=== PATIENT | female | born 1970 | race Caucasian/White ===

== ENCOUNTER 2024-09-10 11:43 | Emergency (ER) | payer OTHER ==
[~2024-09-10] VITALS: Ht 167.6 cm; Wt 90.7 kg
[~2024-09-10 11:43] MED LIST: ALPR0.25; ATEN-60; PAXIL
[2024-09-10] MEDS: HYDROmorphone HCL 2 MG/ML VL/or syr IV ONE ×2 (12:29→14:12)
[2024-09-10] MEDS: ONDANSETRON HCL 4 MG/2 ML VIAL IV ONE (12:30)
--- NOTE | 2024-09-10 12:54 | DVH ---
EXAM: XR Right Shoulder Complete, 2 or More Views CLINICAL INDICATION: ro fracture/dislocation TECHNIQUE: Two or more views of the right shoulder. COMPARISON: None FINDINGS: BONES/JOINTS: Anterior-inferior dislocation of the humeral head from the glenohumeral joint. Commi nuted fracture of the greater tuberosity. SOFT TISSUES: Unremarkable. OTHER FINDINGS: . . . .. IMPRESSION: 1. Anterior-inferior dislocation of the humeral head from the glenohumeral joint. 2. Comminuted fracture of the greater tuberosity.
[2024-09-10 13:24] VITALS: TEMP 97.7
[2024-09-10 13:25] VITALS: PULSE 62; RESP 20; O2SAT 97
--- NOTE | 2024-09-10 13:51 | ED.PDOC ---
Musculoskeletal Chief Complaint: Upper Extremity Time Seen by MD: 12:04 Reviewed Notes: Medications, Allergies Allergies: Coded Allergies: NO KNOWN ALLERGIES (Unverified , 03/12/10) Home Meds Reported Medications Alprazolam (Xanax) 0.25 Mg Tb, DAILY 03/12/10 [Paxil] No Conflict Check 03/12/10 Atenolol (Atenolol) 25 Mg Tab, DAILY 03/12/10 Information Source: Patient, Emergency Med Personnel Mode of Arrival: EMS Location: Right Extremity Location: Shoulder Timing: Hours Prehospital treatment: None Severity: Moderate Able to Move Extremity: No Bear Weight: No Pain: Moderate Hand Dominance: Right Mechanism: Blunt Trauma Circumstances: Fall Onset of Symptoms: After Trauma Symptoms: Pain DVT Risk Factors: NONE Last Tetanus: Unknown Associated signs and symptoms: Shoulder pain Past Medical History PAST MEDICAL HISTORY: Denies Surgical History: Denies all surgeries SAWSMITH History: Denies all SAWSMITH Hx Family History Family History: Reviewed,noncontributory to illness Social History Smoker: Non-Smoker Alcohol: Denies ETOH Use Drugs: Denies Drug Use Lives In: Home Constitutional: denies: chills, diaphoresis, fatigue, fever, malaise, sweats, weakness, others EENTM: denies: blurred vision, double vision, ear bleeding, ear discharge, ear drainage, ear pain, ear ringing, eye pain, eye redness, hearing loss, mouth pain, mouth swelling, nasal discharge, nose bleeding, nose congestion, nose pain, photophobia, tearing, throat pain, throat swelling, voice changes, others Respiratory: denies: cough, hemoptysis, orthopnea, SOB at rest, shortness of breath, SOB with excertion, stridor, wheezing, others Cardiovascular: denies: chest pain, dizzy spells, diaphoresis, Dyspnea on exertion, edema, irregular heart beat, left arm pain, lightheadedness, palpitations, PND, syncope, others Gastrointestinal: denies: abdomen distended, abdominal pain, blood streaked bowels, constipated, diarrhea, dysphagia, difficulty swallowing, hematemesis, melena, nausea, poor appetite, poor fluid intake, rectal bleeding, rectal pain, vomiting, others Genitourinary: denies: abnormal vagina bleeding, burning, dyspareunia, dysuria, flank pain, frequency, hematuria, incontinence, pain, , vagina discharge, urgency, others Neurological: denies: dizziness, fainting, headache, left sided numbness, left sided weakness, numbness, paresthesia, pre-existing deficit, right sided numbness, right sided weakness, seizure, speech problems, tingling, tremors, weakness, others Musculoskeletal: reports: joint pain, muscle pain; denies: back pain, gout, joint swelling, muscle stiffness, neck pain, others Integumetry: denies: bruises, change in color, change in hair/nails, dryness, laceration, lesions, lumps, rash, wounds, others Allergic/Immunocompromised: denies: Difficulty Healing, Frequent Infections, Hives, Itching, others Hematologic/Lymphatic: denies: anemia, blood clots, easy bleeding, easy bruising, swollen glands, others Endocrine: denies: excessive hunger, excessive sweating, excessive thirst, excessive urination, flushing, intolerance to cold, intolerance to heat, unexplained weight gain, unexplained weight loss, others Psychiatric: denies: anxiety, bipolar disorder, depression, hopeless, panic disorder, schizophrenia, sleepless, suicidal, others All Other Systems: Reviewed and Negative Physical Exam General Appearance: Normal, Severe Distress, Other (CRYING IN PAIN) HEENT: NOT DONE Neck: NOT DONE Respiratory: Chest Non-Tender, Lungs Clear, No Accessory Muscle Use, No Respiratory Distress, Normal Breath Sounds Cardiovascular: No Edema, No JVD, No Murmur, No Gallop, Normal Peripheral Pulses, Tachycardia Breast Exam: Deferred Gastrointestinal: No Organomegaly, Non Tender, No Pulsatile Mass, Normal Bowel Sounds, Soft Genitalia: Deferred Pelvic: Deferred Rectal: Deferred Extremities: Decreased range of motion, Other (RIGHT SHOULDER DEFORMITY, DECREASED SENSATION TO LATERAL HUMERUS overlying axillary nerve region.) Neurologic: Alert, retail brand ambassador II-XII nml as Tested, No Motor Deficits, Normal Affect, Normal Mood, No Sensory Deficits Cerebellar Function: Normal Reflexes: Normal Skin: Dry, Normal Color, Warm Lymphatic: No Adenopathy Was a procedure done? Was a procedure done?: Yes Sedation Sedation?: Yes Informed consent obtained: Yes Sedation start time: 14:00 Sedation end time: 14:02 Sedation total time: 2 minutes Sedation provider statement: 72mg PROPOFOL IV Reduction Indication: Dislocation Sedation: Consents obtained, Sedation as ordered Intra-articular anesthetic mirian: No Post-reduction x-ray show: Reduction, Good Alignment Informed consent obtained: Yes Risks/benefits/alt described: Yes Differential Diagnosis EXT Differential Diagnosis: Fracture, Sprain, Dislocation, Contusion, Strain X-Ray, Labs, Meds, VS Vital Signs Date Time Temp Pulse Resp B/P (MAP) Pulse Ox O2 Delivery O2 Flow Rate FiO2 09/10/24 14:19 97 Nasal Cannula* 4 36 09/10/24 14:12 63 20 177/77 09/10/24 13:25 62 20 97 Room Air* 0 21 09/10/24 13:24 97.7 64 20 174/77 (109) 98 97.7 09/10/24 12:59 59 20 177/77 09/10/24 12:29 72 18 166/74 09/10/24 11:52 98.0 61 24 145/90 (108) 96 Current Medications Medications (Trade) Dose Ordered Sig/Emely Route Start Time Stop Time Status Last Admin Ondansetron HCl (Zofran) 4 mg ONCE ONCE IV 09/10/24 12:15 09/10/24 12:16 DC 09/10/24 12:30 Hydromorphone HCl (Dilaudid Injection) 1 mg ONCE ONCE IV 09/10/24 12:15 09/10/24 12:16 DC 09/10/24 12:29 Hydromorphone HCl (Dilaudid Injection) 1 mg ONCE ONCE IV 09/10/24 13:45 09/10/24 13:46 DC 09/10/24 14:12 Propofol (Diprivan) 72 mg ONCE ONCE IV 09/10/24 13:45 09/10/24 13:46 DC 09/10/24 14:13 Sodium Chloride 1,000 ml @ 1,000 mls/hr Q1H ONCE IV 09/10/24 13:45 09/10/24 14:44 09/10/24 14:12 53-year-old female presents here status post trip and fall. She now reports significant right shoulder pain. Patient was screaming and crying upon her arrival to the ER. Patient was seen immediately by myself. On my evaluation she is in a sling in his obvious deformity to her right shoulder. She reports numbness to her fingers and also to her lateral humerus. Patient was treated with Dilaudid and Zofran IV. X-rays of the right shoulder has been done which does demonstrate an anterior inferior shoulder dislocation with a greater tuberosity fracture of the humeral head. At this time procedural sedation has been done. Dr. Colvin at bedside during procedure with the help with assistance, as well as respiratory therapist, and nurse. Patient was given total of propofol 72 mg IV. Patient tolerated procedure well. Patient shoulder immediately was reduced successfully. Patient was placed in shoulder immo bilizer. Patient is neurovascularly intact status post procedure he is here she continues to have numbness to the lateral humeral arm near the axillary nerve region. Post reduction x-rays demonstrate good reduction. I have sent her a prescription for [place] and Zofran to her [place] pharmacy. I had a long discussion with the patient that she will require orthopedic follow up. I have contacted [facility] for follow up appointment with orthopedic surgeon. Strongly advised patient that she needs to keep the shoulder immobilizer on at all times. She can take it off during shower but it is important she keeps her arm adducted to her side at all times. Time of 1ST Reevaluation: 12:34 Reevaluation 1ST: Unchanged Patient Education/Counseling: Diagnosis, Treatment, Prognosis Family Education/Counseling: Diagnosis, Treatment, Prognosis Departure 1 Departure Time of Disposition: 14:45 Impression: Primary Impression: Dislocation of shoulder, right, closed Qualified Codes: S43.004A - Unspecified dislocation of right shoulder joint, initial encounter Additional Impression: Greater tuberosity of humerus fracture Qualified Codes: S42.254A - Nondisplaced fracture of greater tuberosity of right humerus, initial encounter for closed fracture Disposition: 01 HOME / SELF CARE / HOMELESS Condition: Fair Additional Instructions: Follow up with the orthopedic surgeon at [place]. Please remain in your shoulder immobilizer at all times. You can take it off for showering but please keep the shoulder close to you during shower also otherwise you risk it becoming dislocated again. PATIENT: NAI HURST ACCT: [id number] UNIT: [id number] : 1970 LOC: ER ROOM / BED: / AGE / SEX: 53 / F ADM STATUS: REG ER SERVICE 1208 ORDERING PHYSICIAN: VIOLETA TAY MD PROCEDURE(s): RSHD2 - R SHOULDER 2+ VIEW XRAY REASON: ro fracture/dislocation ORDER NUMBER(s): [id number], ACCESSION NUMBER(s): [id number] EXAM: XR Right Shoulder Complete, 2 or More Views CLINICAL INDICATION: ro fracture/dislocation TECHNIQUE: Two or more views of the right shoulder. COMPARISON: None FINDINGS: BONES/JOINTS: Anterior-inferior dislocation of the humeral head from the glenohumeral joint. Comminuted fracture of the greater tuberosity. SOFT TISSUES: Unremarkable. OTHER FINDINGS: . . . .. IMPRESSION: 1. Anterior-inferior dislocation of the humeral head from the glenohumeral joint. 2. Comminuted fracture of the greater tuberosity. ATED BY: EMA OCONNOR MD DICTATED DATE/TIME: 09/10/241251 SIGNED BY: EMA OCONNOR MD SIGNED DATE/TIME: 09/10/241251 PATIENT: NAI HURST ACCT: [id number] UNIT: [id number] : 1970 LOC: ER ROOM / BED: / AGE / SEX: 53 / F ADM STATUS: REG ER SERVICE 1401 ORDERING PHYSICIAN: VIOLETA TAY MD PROCEDURE(s): RSHD - R SHOULDER 1V XRAY REASON: post procedure ORDER NUMBER(s): [id number], ACCESSION NUMBER(s): [id number] CLINICAL INDICATION: post procedure TECHNIQUE: 2 radiographic views of the right shoulder were obtained. Comparison: XY R SHOULDER 2+ VIEW XRAY on DOS: 09/10/24 FINDINGS/IMPRESSION: Status post close reduction of the anteriorly dislocated right shoulder with the shoulder joint in anatomic alignment. Redemonstration of comminuted fracture of the right humerus greater tuberosity. ATED BY: BARBARA JOHNSON DO DICTATED DATE/TIME: 09/10/241417 SIGNED BY: BARBARA JOHNSON DO SIGNED DATE/TIME: 09/10/241417 e-Prescriptions Ondansetron Odt 4MG Tab (ZOFRAN PO) 4 Mg Tb 4 MG PO Q6HPRN PRN, #14 TAB ODT TAB-DISSOLVE IN MOUTH, THEN SWALLOW Prov: VIOLETA TAY MD 09/10/24 Hydrocodone-Acetaminophen (Hydrocodone Bitartrate/AC 5-325 mg) 1 Tab Tab 1 TAB PO Q6HPRN PRN, #14 TAB Prov: VIOLETA TAY MD 09/10/24 Discharged With: Self Critical Care Note Critical Care Time?: No Stability Stability form required: No Heart Score Heart Score: Heart Score Response (Comments) Value History N/A 0 EKG N/A 0 Age N/A 0 Risk Factors N/A 0 Troponin N/A 0 Total 0 I personally scribed for VIOLETA TAY MD ([email or web address]) on 09/10/24 at 13:53. Electronically submitted by Phillip Bran ([email or web address]). I personally scribed for VIOLETA TAY MD ([email or web address]) on 09/10/24 at 13:57. Electronically submitted by Phillip Bran ([email or web address]). I personally scribed for VIOLETA TAY MD ([email or web address]) on 09/10/24 at 14:08. Electronically submitted by Phillip Bran ([email or web address]). I personally scribed for VIOLETA TAY MD ([email or web address]) on 09/10/24 at 14:11. Electronically submitted by Phillip Bran ([email or web address]). I personally scribed for VIOLETA TAY MD ([email or web address]) on 09/10/24 at 14:35. Electronically submitted by Phillip Bran ([email or web address]). I personally scribed for VIOLETA TAY MD ([email or web address]) on 09/10/24 at 14:36. Electronically submitted by Phillip Bran ([email or web address]). VIOLETA TAY MD Sep 10, 2024 13:51
[2024-09-10] MEDS: SODIUM CHLORIDE 0.9% 1,000 ML IV ONE (14:12)
[2024-09-10] MEDS: PROPOFOL 10 MG/ML 20 ML IV ONE (14:13)
--- NOTE | 2024-09-10 14:20 | DVH ---
CLINICAL INDICATION: post procedure TECHNIQUE: 2 radiographic views of the right shoulder were obtained. Comparison: XY R SHOULDER 2+ VIEW XRAY on DOS: 09/10/24 FINDINGS/IMPRESSION: Status post close reduction of the anteriorly dislocated right shoulder with the shoulder joint in an atomic alignment. Redemonstration of comminuted fracture of the right humerus greater tuberosity.
--- NOTE | 2024-09-10 14:28 | DVH ---
CHEST RADIOGRAPH Indication: post sedation Technique: Single frontal view of the chest was obtained Comparison: None FINDINGS: Lines and Tubes: None Lungs: Mild bilateral pulmonary opacities. Pleura: No effusion. No pneumothorax. Cardiomediastinal contours: Unremarkable Bones: No acute osseous abnormality. IMPRESSION: 1. Mild bilateral pulmonary opacities which may reflect mild pulmonary edema.
[2024-09-10] MEDS ORDERED: ZOFR4T PO (14:44)
[2024-09-10] MEDS ORDERED: HYDR-4902 PO (14:44)
[2024-09-10 15:00] VITALS: BP 146/75; PULSE 80; RESP 17; O2SAT 98
== END 2024-09-10 15:13 | disposition home or self-care (01) ==
LOC: ER 11:43 → EDBD 11:43 → ER 15:13
DX: S43.084A Other dislocation of right shoulder joint, initial encounter (principal); S42.251A Displaced fracture of greater tuberosity of right humerus, initial encounter for closed fracture; X58.XXXA Exposure to other specified factors, initial encounter; Y93.89 Activity, other specified; Y92.89 Other specified places as the place of occurrence of the external cause; Y99.8 Other external cause status
CPT/HCPCS: 23650; 71045; 73020; 73030; 96361; 96374; 96375; 96376; 99285; J1171; J2405; J2704; J7030